=== PATIENT | male | born 1955 | race Caucasian/White ===

== ENCOUNTER 2017-04-06 09:00 | Day surgery (SDC) | payer OTHER ==
[~2017-04-06] VITALS: Ht 182.9 cm; Wt 94.8 kg
[~2017-04-06 09:00] MED LIST: IBUPROFEN800 MG PO; NORCO 5-325 TA1 EACH PO
--- NOTE | 2017-04-06 12:39 | NUR ---
04/06/17 1239 Sara Sanchez 1233 PATIENT ARRIVES TO PACU UNRESPONSIVE TO PAIN OR VERBAL STIMULI. ORAL AIRWAY IN PLACE. MASK AT 10 LITERS.
[2017-04-06] MEDS ORDERED: ZOFRAN8 MG PO (12:44)
[2017-04-06] MEDS ORDERED: MAPAP325 MG PO (12:46)
[2017-04-06] MEDS ORDERED: IBUPROFEN600 MG PO (12:46)
[2017-04-06] MEDS ORDERED: OXYCODON-ACETA1 EAC2 PO (12:46)
--- NOTE | 2017-04-06 13:29 | NUR ---
1325 - PT RETURNED FROM PACU. SLIGHTLY CONFUSED AND USING 1-5 WORD SENTENCES. PT ORIENTED TO TIME PLACE AND SITUATION. AT BEDSIDE. PT REPORTING PAIN OF 5/10 AND STATES HE DOES NOT WANT PAIN MEDICATION AT THIS TIME. PT AGREED TO TRY TO EAT SOME JELLO AND TAKE A PAIN PILL SO THAT IT CAN TAKE EFFECT BEFORE PAIN BECOMES WORSE. PT DENIES NAUSEA. BED RAILS UP, CALL LIGHT WITH REACH.
--- NOTE | 2017-04-06 14:18 | NUR ---
1415 - PT REPORTING 2/10 PAIN AT THIS TIME. PT SITS ON THE SIDE OF THE BED TO USE URINAL. PT STABLE ON SIDE OF BED BUT REPORTS FEELING SLIGHTLY DIZZY AND NOT READY TO GO HOME "QUITE YET. i NEED A NAP FIRST." FAMILY AT BEDSIDE. BED RAILS UP, CALL LIGHT WITHIN REACH.
--- NOTE | 2017-04-06 14:32 | NUR ---
PT RESTING IN BED, WAITING FOR RN TO START IV. SHORT VISIT, EXTENDED BLESSING, DOMINIK CARLSON IN JUST THEN. WILL FOLLOW NEEDED
--- NOTE | 2017-04-06 14:51 | NUR ---
1451 - PT STEADY ON FEET WITH ONE PERSON STANDY BY ASSIST. PT DRESSES SELF. PT TOLERATING PO FOOD AND FLUIDS. PT DENIES NAUSEA AND REPORTS PAIN OF 2/10. PRESENT AT BEDSIDE FOR DISCHARGE INSTRUCTIONS. PT AND VERBALIZE UNDERSTANDING OF DISCHARGE INSTRUCTIONS.
--- NOTE | 2017-04-10 10:32 | OR ---
[facility] [address] [place], [place] [address] Signed DATE OF SERVICE: 04/06/2017 PREOPERATIVE DIAGNOSIS: Left breast mass (large, symptomatic). Family history of breast cancer (mother). POSTOPERATIVE DIAGNOSIS: Left breast mass (large, symptomatic). Family history of breast cancer (mother). Possible gynecomastia versus breast cancer. PROCEDURE: Left subcutaneous mastectomy. SURGEON: Robyn Vernon MD ANESTHESIA: General LMA (Robyn Khanna CRNA) and local 10 mL 0.25% Marcaine with epinephrine. INDICATION: This 61-year-old white man is well known to me from the past. He is known to have an amorphous mass in the left infraareolar area. Palpation shows a somewhat amorphous mass. It is somewhat symptomatic for him. A mammogram and ultrasound were performed showing a BI-RADS category 4 (suspicious) lesion. He does have family history of breast cancer in his mother. He is admitted at this time to undergo excision of the mass for both diagnosis and treatment. He understands the risks of bleeding, infection, cosmetic deformity, need for additional treatment dinorah uld cancer be found, and so on. Understanding this, he wished to proceed. FINDINGS: Firm fibrous tissue was noted extending mostly to the left of the areola but definitely beneath the areola as well. The subcutaneous fatty layer was maintained throughout. Excision was taken down to the pectoralis fascia. Complete excision was undertaken. Specimen was approximately 9 cm in maximum length. It was oriented and sutured appropriately for the pathologist review. By conclusion, good cosmesis was noted. PROCEDURE IN DETAIL: The patient was brought to the operating room, given a general LMA-type anesthetic. Preoperative antibiotic Ancef was given. Sequential compression device stockings used and heparin subcutaneously administered. The left chest was clipped and prepare d with a chlorhexidine solution and draped sterilely. Palpation of the amorphous mass was undertaken, and the margins were marked with a marking pen. The inferior areolar margin was similarly marked. An incision was made with a 15 blade, and dissection wa s carried Electronically Signed By: ROBYN VERNON MD 04/10/17 1032 PATIENT NAME: SIMIN GONZALEZ OPERATIVE REPORT DATE OF : 57 PHYSICIAN: ROBYN VERNON MD REPORT #: [id number] REPORT IS CONFIDENTIAL AND NOT TO BE RELEASED WITHOUT AUTHORIZATION [facility] [address] [place], [place] [address] Signed through the dermis with sharp and electrocautery dissection. A flap was elevated beneath the nipple maintaining a generous bud. With a retractor, the dermis and subcutaneous fatty tissue were from the underlying fibrous tissue of the b reast. This was dissected free with meticulous care using electrocautery circumferentially to the limits of the marked tissue. Dissection was then taken towards the pectoralis muscle and ultimately pectoralis fascia excised in continuity with the breast t i ssue. Fair amount of time was taken so as to maintain good cosmesis. The specimen was ultimately excised, and a short stitch was used to nitin the superior margin, a long stitch to lateral margin, a double stitch in the deep margin. Irrigation was undertak e n with sterile water showing no excessive bleeding. Electrocautery was used for hemostasis. The flaps circumferentially around the excision site were secured in a quilting technique using 2-0 Vicryl suture to obliterate the space. The deep dermal lay e r was reapproximated with interrupted 2-0 Vicryl, and a running subcuticular 3-0 Vicryl was used for the skin. Local anesthesia of 10 mL of 0.25% Marcaine with epinephrine was used as well. The incision was secured with Steri-Strips and a Mepilex silver sponge dressing and an OpSite. The contour of the operative side was quite good and far more symmetric now to the right side. The patient was ultimately extubated and transferred to recovery room in good condition having suffered no complications. Blood loss was less than 20 mL. MD NAZIA Kenney/Dino /[id number] cc: Osbaldo Ashton MD Electronically Signed By: ROBYN VERNON MD 04/10/17 1032 PATIENT NAME: SIMIN GONZALEZ OPERATIVE REPORT DATE OF : 57 PHYSICIAN: ROBYN VERNON MD REPORT #: [id number] REPORT IS CONFIDENTIAL AND NOT TO BE RELEASED WITHOUT AUTHORIZATION
== END 2017-04-06 15:07 | disposition home or self-care (01) ==
LOC: DS 09:00
PROVIDERS: Surgery
PROC: 0HBU0ZZ Excision of Left Breast, Open Approach (ICD-10-PCS; principal; 2017-04-06 10:45)
DX: N62 Hypertrophy of breast (principal); E78.5 Hyperlipidemia, unspecified; Z86.010 Personal history of colon polyps; Z85.46 Personal history of malignant neoplasm of prostate; Z87.442 Personal history of urinary calculi; Z80.3 Family history of malignant neoplasm of breast; Z88.5 Allergy status to narcotic agent; Z88.8 Allergy status to other drugs, medicaments and biological substances; Z90.49 Acquired absence of other specified parts of digestive tract; Z98.890 Other specified postprocedural states
CPT/HCPCS: 00404; J0690; J1100; J1644; J1885; J2250; J2405; J2704; J2765; J3010; J7120

== ENCOUNTER 2023-05-14 08:53 | Day surgery (SDC) | payer MEDICARE, OTHER ==
[~2023-05-14] VITALS: Ht 182.9 cm; Wt 90.9 kg
[~2023-05-14 08:53] MED LIST changes: +IBUPROFEN600 MG PO; +MAPAP325 MG PO; +OXYCODON-ACETA1 EAC2 PO; +ZOFRAN8 MG PO
[2023-05-14 09:17] VITALS: BP 167/79
--- NOTE | 2023-05-14 11:56 | NUR ---
05/14/23 1156 David,Adriana 1140 PT ARRIVED WITH EYES OPEN AND EASILY FALLS RIGHT TO SLEEP. RESP EVEN AND UNLABORED. 1151 MD AT BEDSIDE AND WAKES PT, PT REORIENTED TO PACU AND DENIES CONCERNS.
[2023-05-14 12:16] VITALS: BP 140/81
--- NOTE | 2023-05-15 10:44 | OR ---
[facility] [address] [place], [place] [address] Signed DATE OF OPERATION: 05/14/2023 SURGEON: Robyn Vernon MD PREOPERATIVE DIAGNOSES: 1. Colon screening. 2. Episodic diarrhea. 3. Mild proctitis on colonoscopy in 2009. POSTOPERATIVE DIAGNOSIS: Sigmoid diverticulosis, otherwise normal. PROCEDURE: Total colonoscopy to cecum with biopsy of rectum, rule out occult colitis. ANESTHESIA: Intravenous sedation, fentanyl 100 mcg and Versed 7 mg. INDICATIONS FOR THE PROCEDURE: This 68-year-old white man, is a patient of [facility] Moreno. He last underwent colonoscopy in 2009, notable for mild proctitis and sigmoid diverticulosis. He has undergone prostatectomy for prostate cancer in the past. He has no family history of colon cancer. He does have episodic severe diarrhea, which has been going on for a number of months, but no associated blood per rectum. On the basis of those factors, he is admitted at this time to undergo colonoscopy. He understands the risk of bleeding, infection, perforation and wished to proceed. FINDINGS: The prep was excellent. Complete colonoscopy was undertaken of the cecum. Had no evidence of polyps or cancer or noah colitis. He did have diverticulosis of the sigmoid and left colon. The rectum was normal appearing, that was biopsied to assess for occult colitis. DESCRIPTION OF PROCEDURE: The patient was brought to the endoscopy suite and placed in lateral decubitus position given intravenous sedation to the point of slurred speech and nystagmus. Digital rectal examination was normal. There is no prostate tissue remaining on palpation related to prior prostatectomy. An Olympus video colonoscope was passed into the rectum and manipulated throughout the Electronically Signed By: ROBYN VERNON MD 05/15/23 1044 PATIENT NAME: SIMIN GONZALEZ OPERATIVE REPORT DATE OF : 57 REPORT #: [id number] PHYSICIAN: ROBYN VERNON MD PCP: ANGE STANLEY REPORT IS CONFIDENTIAL AND NOT TO BE RELEASED WITHOUT AUTHORIZATION [facility] [address] [place] [id number] Signed colon noting diverticular change of the sigmoid and left colon. Scope was ultimately passed to the cecum and the ileocecal valve, easily identified and found to be normal. The scope was then withdrawn and examination throughout showed no sign of abnormality other than the diverticula. Biopsies were taken of the rectum to rule out occult colitis given his diarrhea issue. Retroflexed view was normal. Scope was removed, and the patient taken to the recovery room in good condition. CONCLUDING DIAGNOSIS: Diverticulosis. PLAN: Recommend fiber supplement, Citrucel or Metamucil to assist with diarrhea issue. If persistent symptoms, I am happy to see him again for further management. He will otherwise return to the ongoing care of [facility] Moreno. MD NAZIA Kenney/LIDIA /[id number] cc: R[facility] Moreno Copies: ANGE STANLEY ~ Electronically Signed By: ROBYN VERNON MD 05/15/23 1044 PATIENT NAME: SIMIN GONZALEZ OPERATIVE REPORT DATE OF : 57 REPORT #: [id number] PHYSICIAN: ROBYN VERNON MD PCP: ANGE STANLEY REPORT IS CONFIDENTIAL AND NOT TO BE RELEASED WITHOUT AUTHORIZATION
--- NOTE | 2023-05-18 13:48 | PATH ---
[facility] [address] [place], [place] [address] Signed SPECIMEN(S): A RECTAL BIOPSY SPECIMEN SOURCE: A. RECTAL BIOPSY CLINICAL HISTORY: Pre-op: Recent history of severe diarrhea. Post-op: Diverticulosis. FINAL PATHOLOGIC DIAGNOSIS: Rectum, biopsies: - Mildly hyperplastic colonic mucosa, negative for active colitis, granulomas or dysplasia. See comment COMMENT: The provided clinical history of diarrhea and diverticulosis is noted. AMB MICROSCOPIC EXAMINATION: Histologic sections of all submitted blocks are examined by light microscopy. These findings, together with the gross examination, support the pathologic diagnosis. AMB GROSS DESCRIPTION: The specimen, labeled and designated "Keyla rectal biopsy," is received in formalin and consists of one naik soft tissue fragment, 0.3 cm. Entirely submitted in (A1). JS (under the direct supervision of a pathologist) The Gross Description was prepared using a voice recognition system. The report was reviewed for accuracy; however, sound-alike word errors, addition and/or deletions may occur. If there is any question about this report, please contact Client Services. ADDITIONAL NOTES: Immunohistochemical and/or in situ hybridization studies if performed in this case included appropriate positive controls that reacted as expected. This test was developed and its performance characteristics determined by [facility]. It has not been cleared or approved by the U.S. Food and Drug Administration. The FDA has determined that such clearance or approval is not necessary. This test is used for clinical purposes. It should not be regarded PATIENT NAME: SIMIN GONZALEZ PATHOLOGY DATE OF : 57 REPORT #: [id number] PHYSICIAN: REJI BISWAS PCP: ANGE STANLEY REPORT IS CONFIDENTIAL AND NOT TO BE RELEASED WITHOUT AUTHORIZATION [facility] [address] [facility] [place], [place] [address] Signed as investigational or for research. [facility] is certified under the Clinical Laboratory Improvement Amendments of 1988 (CLIA) as qualified to perform high complexity clinical laboratory testing. PERFORMING LABORATORY: Technical component was performed by [facility], [address] [place] [address] (CLIA# [id number]). Professional interpretation was performed by [facility] [address] [place] [id number] Diagnostician: Molly Meng MD Pathologist Electronically Signed 05/18/2023 Copies: ~ PATIENT NAME: SIMIN GONZALEZ PATHOLOGY DATE OF : 57 REPORT #: [id number] PHYSICIAN: REJI BISWAS PCP: ANGE STANLEY REPORT IS CONFIDENTIAL AND NOT TO BE RELEASED WITHOUT AUTHORIZATION
== END 2023-05-14 12:30 | disposition home or self-care (01) ==
LOC: OPS 08:53 → DS 08:56 → OPS 10:15
PROVIDERS: ATTEND Surgery
PROC: 0DBP8ZX Excision of Rectum, Via Natural or Artificial Opening Endoscopic, Diagnostic (ICD-10-PCS; principal; 2023-05-14 10:15)
DX: Z12.11 Encounter for screening for malignant neoplasm of colon (principal); K52.9 Noninfective gastroenteritis and colitis, unspecified; N62 Hypertrophy of breast; K57.30 Diverticulosis of large intestine without perforation or abscess without bleeding; Z85.46 Personal history of malignant neoplasm of prostate; Z90.79 Acquired absence of other genital organ(s); Z90.49 Acquired absence of other specified parts of digestive tract
CPT/HCPCS: 88305; 99153; G0500; J2250; J3010; J7121